=== PATIENT | female | born 1990 | race Caucasian/White ===

== ENCOUNTER 2017-09-15 11:48 | Emergency (ER) | payer SELFPAY ==
[~2017-09-15] VITALS: Ht 177.8 cm; Wt 79.0 kg
[2017-09-15 11:56] VITALS: BP 118/63
== END 2017-09-15 12:54 | disposition home or self-care (01) ==
LOC: ER 11:48
DX: S51.811A Laceration without foreign body of right forearm, initial encounter (principal); F17.210 Nicotine dependence, cigarettes, uncomplicated; Z88.0 Allergy status to penicillin; V28.4XXA Motorcycle driver injured in noncollision transport accident in traffic accident, initial encounter; Y93.89 Activity, other specified; Y99.8 Other external cause status; Y92.410 Unspecified street and highway as the place of occurrence of the external cause
CPT/HCPCS: 12002

== ENCOUNTER 2022-01-11 11:37 | Emergency (ER) | payer MEDICAID ==
[~2022-01-11] VITALS: Ht 175.3 cm; Wt 68.0 kg
[2022-01-11 11:38] VITALS: BP 116/75
[2022-01-11] MEDS ORDERED: cefTRIAXone SOD 1,000 MG VL IM ONE (12:30)
[2022-01-11] MEDS ORDERED: ONDANSETRON ODT 4 MG TAB PO ONE (12:30)
[2022-01-11] MEDS ORDERED: CLIN300C8 PO (12:54)
[2022-01-11] MEDS ORDERED: ONDA-144 PO (12:54)
== END 2022-01-11 13:00 | disposition home or self-care (01) ==
LOC: ER 11:37
DX: K04.7 Periapical abscess without sinus (principal); N30.00 Acute cystitis without hematuria; F17.210 Nicotine dependence, cigarettes, uncomplicated; F15.10 Other stimulant abuse, uncomplicated; Z88.0 Allergy status to penicillin
CPT/HCPCS: 81002; 81025; 96372; 99283; J0696; Q0162

== ENCOUNTER 2022-06-17 23:14 | Emergency (ER) | payer MEDICAID ==
[~2022-06-17 23:14] MED LIST: CLIN300C8 PO; ONDA-144 PO
== END 2022-06-18 01:17 | disposition left against medical advice (07) ==
LOC: ER 23:14
DX: M25.511 Pain in right shoulder (principal); Z53.21 Procedure and treatment not carried out due to patient leaving prior to being seen by health care provider

== ENCOUNTER 2022-06-23 00:23 | Emergency (ER) | payer MEDICAID | END 2022-06-23 02:00 | disposition left against medical advice (07) | LOC: ER 00:23 | DX: J02.9 Acute pharyngitis, unspecified (principal); Z53.21 Procedure and treatment not carried out due to patient leaving prior to being seen by health care provider ==